=== PATIENT | female | born 1980 | race Two or more races ===

== ENCOUNTER 2020-11-13 04:38 | Emergency (ER) | payer OTHER ==
[~2020-11-13] VITALS: Ht 170.2 cm; Wt 72.6 kg
[2020-11-13] MEDS ORDERED: LORazepam 0.5 MG TAB PO ONE (05:00)
[2020-11-13 07:41] LABS: Basophils # (auto) 0 10 ^3/uL (0-0.2); Basophils % (auto) 0.4 % (0.0-2.0); Eosinophils # (auto) 0 10 ^3/uL (0-0.8); Eosinophils % (auto) 0.1 % (0.0-7.0); Hematocrit 41.5 % (36.0-46.0); Hemoglobin 13.8 g/dL (12.2-16.2); Lymphocytes % (auto) 15.2 % (10.0-50.0); Mean Corpuscular Hemoglobin 30.2 pg (28.0-32.0); Mean Corpuscular Hgb Conc. 33.3 g/dL (32.0-36.0); Mean Corpuscular Volume 90.6 fL (80.0-100.0); Monocytes # (auto) 0.4 10 ^3/uL (0-1.3); Monocytes % (auto) 6.5 % (0.0-12.0); Neutrophils % (auto) 77.8 % (37.0-80.0); Nucleated Red Blood Cells % 0.1 %; Red Blood Cells 4.58 10^6/uL (4.0-5.20); Red Cell Distribution Width 13.3 % (11.8-14.3); White Blood Cell 6.4 10^3/uL (4.4-10.8)
[2020-11-13 07:58] LABS: INR 1.08 (0.9-1.15)
[2020-11-13 08:05] LABS: Albumin 3.6 g/dL (3.4-5.0); Anion Gap 12 (5-15); Calcium 8.6 mg/dL (8.5-10.1); Carbon Dioxide 23 mmol/L (21-32); Chloride 101 mmol/L (98-107); Potassium 3.9 mmol/L (3.5-5.1); Sodium 136 mmol/L (136-145)
[2020-11-13 08:08] LABS: Alanine Aminotransferase 25 U/L (13-56); Aspartate Aminotransferase 29 U/L (15-37); BUN/Creatinine Ratio 11.9; Blood Urea Nitrogen 10 mg/dL (7-18); GFR African American 98 mL/min; GFR Non-African American 81 mL/min; Glucose 78 mg/dL (74-106); Magnesium 1.9 mg/dL (1.6-2.6)
[2020-11-13 08:13] LABS: Alkaline Phosphatase 71 U/L (45-117); Total Protein 7.4 g/dL (6.4-8.2)
[2020-11-13 09:10] VITALS: BP 140/99
== END 2020-11-13 09:10 | disposition home or self-care (01) ==
LOC: EDBD 04:38 → ER 04:38
DX: F41.0 Panic disorder [episodic paroxysmal anxiety] (principal); Z20.822 Contact with and (suspected) exposure to COVID-19; F17.210 Nicotine dependence, cigarettes, uncomplicated
CPT/HCPCS: 36415; 71045; 80053; 83735; 84484; 84702; 85025; 85610; 85730; 87426; 93005